=== PATIENT | male | born 1955 | race Caucasian/White ===

== ENCOUNTER 2018-09-02 16:25 | Emergency (ER) | payer BC, OTHER ==
[~2018-09-02] VITALS: Ht 172.7 cm; Wt 81.6 kg
[~2018-09-02 16:25] MED LIST: AMLO10TA4 PO; DIPH25CA58 PO; ENOX80DI SQ; GABA300C18 PO; LIPITOR80 MG PO; LOSA-73 PO; MYCO250C PO; PRED5TAB19 PO; WARF6TAB49 PO; [UNRECOGNIZED DRUG - CODE] MC
[2018-09-02 16:52] VITALS: BP 150/79
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
[2018-09-02] MEDS ORDERED: tiZANidine 4 MG TABLET. PO ONE (17:45)
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
[2018-09-02 17:52] LABS: BILIRUBIN,URINE NEGATIVE (NEG); CLARITY,URINE CLOUDY; COLOR,URINE YELLOW; NITRITE,URINE NEGATIVE (NEG); PH,URINE 5.5; PROTEIN,URINE >=300 mg/dL (NEG-TRACE); UROBILINOGEN,URINE 0.2 mg/dL (0.2 mg/dL)
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
[2018-09-02 18:06] LABS: BACTERIA,URINE 0 /HPF (0-FEW); RBC,URINE 0 /HPF (0-2); WBC,URINE OCC /HPF (0-4)
[2018-09-02 18:07] LABS: HYALINE CASTS, URINE FEW /HPF; SQUAMOUS EPITHELIAL CELL,UR OCC /LPF
[2018-09-02] MEDS ORDERED: ORPH100T PO (18:09)
[2018-09-02] MEDS ORDERED: HYDR-3164 PO (18:09)
== END 2018-09-02 18:21 | disposition home or self-care (01) ==
LOC: ER 16:25
DX: S80.01XA Contusion of right knee, initial encounter (principal); S50.01XA Contusion of right elbow, initial encounter; S09.8XXA Other specified injuries of head, initial encounter; M54.2 Cervicalgia; E78.00 Pure hypercholesterolemia, unspecified; I10 Essential (primary) hypertension; Z88.8 Allergy status to other drugs, medicaments and biological substances; Z88.1 Allergy status to other antibiotic agents; Y04.8XXA Assault by other bodily force, initial encounter; Y93.02 Activity, running; Y92.89 Other specified places as the place of occurrence of the external cause; Y99.8 Other external cause status
CPT/HCPCS: 70450; 72125; 73080; 73564; 81001; 99284-25